=== PATIENT | male | born 1950 | race Caucasian/White ===

== ENCOUNTER 2018-07-27 14:39 | Outpatient (CLI) | payer MEDICARE, OTHER ==
--- NOTE | 2018-07-27 15:31 | RAD ---
CHEST TWO VIEWS: History: Dyspnea. FINDINGS: Comparison is made with exam of 06-19-17. The heart size is normal. The aorta is tortuous. Blunting of the right costophrenic angle is stable. No focal areas of consolidation, pneumothoraces or new effusions are seen. There are mild degenerativ e changes in the spine. IMPRESSION: Stable exam. No acute process. POS: [facility]
== END 2018-07-27 14:40 | disposition home or self-care (01) ==
LOC: RAD 14:39
PROVIDERS: ATTEND Internal Medicine Pulmonary Disease
DX: R06.00 Dyspnea, unspecified (principal)
CPT/HCPCS: 71046